=== PATIENT | male | born 1990 | race Caucasian/White ===

== ENCOUNTER 2017-03-12 13:11 | Emergency (ER) | payer SELFPAY ==
[2017-03-12] MEDS ORDERED: Adacel (T-DAP) 0.5 ML VIAL ONE (13:57)
== END 2017-03-12 14:25 | disposition home or self-care (01) ==
LOC: ERS 13:11
DX: T24.202A Burn of second degree of unspecified site of left lower limb, except ankle and foot, initial encounter (principal); F17.210 Nicotine dependence, cigarettes, uncomplicated
CPT/HCPCS: 90471; 90715; 99406